=== PATIENT | male | born 1950 | race Caucasian/White ===

== ENCOUNTER 2016-12-24 11:38 | Day surgery (SDC) | payer OTHER ==
[2016-12-24] MEDS ORDERED: NS 500 ML IV ONE (11:47)
[2016-12-24] MEDS ORDERED: BENZOCAINE UNIT DOSE SPRAY HURRICAINE MM ONE (11:47)
[2016-12-24] MEDS ORDERED: fentaNYL 100 MCG/2 ML INJ IVP ONE (11:47)
[2016-12-24] MEDS ORDERED: MIDAZOLAM 2 MG/2 ML VIAL IVP ONE (11:47)
--- NOTE | 2016-12-24 13:55 | PDPROPOC ---
Sedation Plan of Care Sedation Plan of Care: vital signs stable, mental status noted, patient educated of risks, benefits, alternatives, patient can tolerate sedation ASA Classification: ASA 2 Planned drugs: fentanyl, midazolam Mallampati Score: Class 1 Mallampati Reference Image: Patient passed 3-3-2 rule?: Yes
--- NOTE | 2016-12-24 13:55 | PDHPUP ---
History & Physical Update H&P update statement: This history and physical update is based on an assessment of the patient which was completed after admission or registration (within 24 hours), but prior to the surgery/procedure. H&P update: H&P reviewed & patient examined, no change in patient's condition since H&P completed
[2016-12-24] MEDS ORDERED: fentaNYL 100 MCG/2 ML INJ ONE (14:11)
--- NOTE | 2016-12-24 16:22 | ECHO ---
[email or web address] [address] [address] Main: [phone] Fax: Transesophageal Echocardiography Name: RAMON CHAPMAN MR#: [id number] Study Date: 12/24/2016 Study Time: 01:24 PM Date of : 1950 Age: 66 year(s) Height: ( ) Weight: ( ) BSA: Gender: Male Examination: DONALD Indication: Aortic Sclerosis Image Quality: Contrast: Requested by: Asad Hernandez Heart Rate: Rhythm: BP: / Procedure Staff Compressor Technician: Kenny Harvey Reading Physician: Saqib Evans Requesting Provider: DONALD Exam Details Conclusions: Normal left ventricular size and function. LVEF estimated at 65-70%. Normal left ventricular free wall thickness. No evidence of regional wall motion abnormalities. Mild left atrial enlargement. Normal right-sided chamber dimensions. Morphologically normal-appearing mitral valve with trivial mitral regurgitation. Trileaflet aortic valve with [id number] sclerosis and reduced leaflet excursion during systole. Mild to moderate aortic stenosis with a mean pressure gradient of 27 mmHg and a calculated aortic valve area of 1.45 subcutaneously cm. Aortic valve area by planimetry was also 1.45 subcutaneously cm. There was mild aortic insufficiency. Normal appearing tricuspid valve with trivial tricuspid insufficiency. No evidence of pericardial effusion. Left atrial appendage free of thrombus. Intact interatrial septum on color flow doppler imaging. Negative agitated saline contrast study. Measurements: Chambers Valvular Assessment AV/MV Valvular Assessment TV/PV Normal Normal Normal Name Value Range Name Value Range Name Value Range LVOTd 2.1 cm 2.1 cm mm AV Vmax: 3.41 m/s (1 m/s-1.7 m/s) AV maxP mmHg ( - ) AV meanP mmHg ( - ) LVOT Vmax: 1.40 m/s (0.7 m/s-1.1 m/s) JORGE LUIS (Vmax): 1.4 cm2 ( - ) JORGE LUIS (VTI): 1.7 cm ( - ) Additional Measurements: Patient: RAMON CHAPMAN Study Date: 12/24/2016 Page 1 of 2 01:24 PM Findings: Left Ventricle: Normal global systolic LV function. Right Ventricle: Normal RV function. Left Atrial Appendage: Good color flow doppler in the left atrial appendage. Normal PW-Doppler flow pattern. No thrombus in left appendage. Right Atrium: The right atrium is normal in size. Mitral Valve: The mitral valve is normal in appearance and function. Aortic Valve: The aortic valve is tri-leaflet. Moderate aortic cusp calcification is present. Moderate calcific aortic valve stenosis. The AO Mean PG is 27mmHg, With a Ao Vmax of 3.4 m/s. Tricuspid Valve: The tricuspid valve is normal in appearance and function. Pulmonic Valve: The pulmonic valve is normal in appearance and function. Aorta: The aorta is normal. Pericardium: No pericardial effusion. l1n (No Signature Object) Patient: RAMON CHAPMAN Study Date: 12/24/2016 Page 2 of 2 01:24 PM [id number]
== END 2016-12-24 15:48 | disposition home or self-care (01) ==
LOC: FCATH 11:38
PROVIDERS: ATTEND Internal Medicine
PROC: B245ZZ4 Ultrasonography of Left Heart, Transesophageal (ICD-10-PCS; principal; 2016-12-24)
DX: I35.0 Nonrheumatic aortic (valve) stenosis (principal); E78.5 Hyperlipidemia, unspecified; I10 Essential (primary) hypertension
CPT/HCPCS: J2250; J3010

== ENCOUNTER → 2018-04-12 | Outpatient (CLI) | payer OTHER | LOC: EMCIMAGING 10:58 | PROVIDERS: ATTEND Family Medicine | DX: M50.30 Other cervical disc degeneration, unspecified cervical region (principal); M12.88 Other specific arthropathies, not elsewhere classified, other specified site | CPT/HCPCS: 72040-PN ==

== ENCOUNTER → 2018-05-05 | Outpatient (CLI) | payer OTHER ==
[~2018-05-05] MED LIST: IOPAMIDOL (ISOVUE-300) 100 ML BTL ONE
== END ==
LOC: FIMAGING 15:38
PROVIDERS: ATTEND Family Medicine
DX: R10.9 Unspecified abdominal pain (principal)
CPT/HCPCS: 74177; Q9967; 82565-PO